=== PATIENT | male | born 1945 | race Caucasian/White ===

== ENCOUNTER 2022-05-05 12:17 | Inpatient (IN) | payer OTHER ==
[2022-05-05 13:05] VITALS: BMI 28.3
[2022-05-05] MEDS ORDERED: PREGABALIN 100 MG CAPSULE PO ONE ×2 (14:41→19:11)
[2022-05-05] MEDS ORDERED: PREGABALIN 100 MG CAPSULE ONE ×2 (14:50→19:44)
[2022-05-05 15:13] LABS: HEMATOCRIT 44.2 % (35.4-49); HEMOGLOBIN 13.6 GM/dL (11.7-16.9); MCH 25.2 pg (25.7-33.7); MCHC 30.9 g/dl (32.0-35.9); MEAN CELL VOLUME 81.6 fl (80-96); MEAN PLT VOLUME 8.5 fl (7.5-11.1); PLATELET COUNT 290 10^3/uL (134-434); RBC 5.42 M/mm3 (4.00-5.60); RDW 25.1 % (11.9-15.9); WHITE BLOOD COUNT 17.7 K/mm3 (4.0-10.0)
[2022-05-05 15:22] LABS: INR 1.21 (0.83-1.09); PROTHROMBIN TIME (PATIENT) 13.9 SEC (9.7-13.0)
[2022-05-05 15:25] LABS: ACTIVATED PTT 34.7 SECONDS (25.2-36.5)
[2022-05-05 15:37] LABS: CALCIUM 8.9 mg/dL (8.5-10.1)
[2022-05-05 15:38] LABS: ALBUMIN 3.5 g/dl (3.4-5.0); BLOOD UREA NITROGEN 27.4 mg/dL (7-18); MAGNESIUM 2.3 mg/dL (1.8-2.4)
[2022-05-05 15:41] LABS: CREATININE 1.1 mg/dL (0.55-1.3)
[2022-05-05 15:42] LABS: BILIRUBIN,TOTAL 0.7 mg/dL (0.2-1); TOT PROT 7.3 g/dl (6.4-8.2)
[2022-05-05 15:43] LABS: ANISOCYTOSIS 2+; MACROCYTOSIS 0
[2022-05-05] MEDS ORDERED: VANCOMYCIN 1 GM in D5W (PRE-DOCKED) 1,000 MG/250 ML IVPB ONE (16:22)
[2022-05-05] MEDS ORDERED: MEROPENEM 1 GM in DEXTROSE 5%-WATER 100 ML IVPB ONE (16:22)
[2022-05-05] MEDS ORDERED: VANCOMYCIN/WATER FOR INJ (PEG) 1,000 MG/200 ML BAG IVPB ONE (17:05)
[2022-05-05] MEDS ORDERED: MEROPENEM 1 GM VIAL (RESTRICTED TO ID) IVPB ONE (17:05)
[2022-05-05] MEDS ORDERED: SENNOSIDES 8.6MG TABLET (FP) PO ONE ×2 (19:12→19:44)
[2022-05-05] MEDS ORDERED: MELATONIN 5 MG TABLETS PO ONE (19:12)
[2022-05-05] MEDS ORDERED: ASPIRIN COATED 81 MG TABLET.EC PO ONE (19:18)
[2022-05-05] MEDS ORDERED: MELATONIN 5 MG TABLETS ONE (19:44)
[2022-05-05] MEDS ORDERED: ASPIRIN COATED 81 MG TABLET.EC ONE (19:44)
[2022-05-06] MEDS ORDERED: SODIUM CHLORIDE 1,000 ML IV SCH (06:15)
[2022-05-06] MEDS: PIPERACILLIN/TAZOB 3.375 GM 3.375 GM in DEXTROSE 5%-WATER - 50 ML IVPB SCH ×3 (09:41→22:58)
[2022-05-06] MEDS: ENOXAPARIN NA (PORCINE) 40 MG/0.4 ML DISP.SYRIN SQ SCH (09:44)
[2022-05-06] MEDS ORDERED: PIPERACILLIN/TAZOB 3.375 GM 3.375 GM in DEXTROSE 5%-WATER - 50 ML IVPB SCH (10:00)
[2022-05-06] MEDS ORDERED: VANCOMYCIN 1 GM in D5W (PRE-DOCKED) 1,000 MG/250 ML IVPB SCH (10:00)
[2022-05-06] MEDS ORDERED: CLINDAMYCIN 600MG PREMIX IVPB 600 MG/50 ML BAG IVPB SCH (10:00)
[2022-05-06] MEDS ORDERED: VANCOMYCIN 1 GM/200 ML PREMIX BAG (RESTRICTED TO ID ONLY) IVPB SCH (11:00)
[2022-05-06] MEDS: HYDROXYUREA 500 MG CAPSULE PO SCH (14:19)
[2022-05-06] MEDS: metoPROLOL SUCCINATE 25 MG TAB.SR.24H (FP) PO SCH (14:20)
[2022-05-06] MEDS: PREGABALIN 100 MG CAPSULE PO SCH ×2 (14:20→22:58)
[2022-05-06] MEDS: PANTOPRAZOLE 40 MG TABLET PO SCH (14:20)
[2022-05-06] MEDS ORDERED: oxyCODONE HCL 5 MG TABLET PO PRN ×3 (14:37→15:50)
[2022-05-06] MEDS ORDERED: morphine SO4 SUSTAINED ACTING 15 MG TABLET.SA PO ONE ×2 (15:29→15:32)
[2022-05-06] MEDS ORDERED: ASPIRIN COATED 81 MG TABLET.EC PO ONE (19:18)
[2022-05-06] MEDS ORDERED: SENNOSIDES 8.6MG TABLET (FP) PO SCH (22:00)
[2022-05-06] MEDS ORDERED: ATORVASTATIN CA 40 MG TABLET (FP) PO SCH (22:00)
[2022-05-07 00:21] VITALS: RESP 18
[2022-05-07] MEDS: PIPERACILLIN/TAZOB 3.375 GM 3.375 GM in DEXTROSE 5%-WATER - 50 ML IVPB SCH (04:01)
[2022-05-07] MEDS: PREGABALIN 100 MG CAPSULE PO SCH ×2 (05:59→13:46)
[2022-05-07 07:37] VITALS: BP 106/66; PULSE 60; TEMP 97.4
[2022-05-07] MEDS ORDERED: MULTIVITAMINS (DAILY MVI) TABLET (FP) PO SCH (10:00)
[2022-05-07] MEDS ORDERED: morphine SO4 SUSTAINED ACTING 15 MG TABLET.SA PO SCH (10:00)
[2022-05-07] MEDS ORDERED: LACTOBACILLUS ACIDOPHILUS 1 TABLET PO SCH (10:00)
[2022-05-07] MEDS ORDERED: ASCORBIC ACID 500 MG TABLET (FP) PO SCH (10:00)
[2022-05-07] MEDS ORDERED: ASPIRIN 81 MG CHEWABLE TABLETS PO SCH (10:00)
[2022-05-07] MEDS: metoPROLOL SUCCINATE 25 MG TAB.SR.24H (FP) PO SCH (11:23)
[2022-05-07] MEDS: PANTOPRAZOLE 40 MG TABLET PO SCH (11:23)
[2022-05-07] MEDS: ENOXAPARIN NA (PORCINE) 40 MG/0.4 ML DISP.SYRIN SQ SCH (11:24)
[2022-05-07] MEDS: HYDROXYUREA 500 MG CAPSULE PO SCH (11:24)
[2022-05-07] MEDS ORDERED: PIPERACILLIN/TAZOB 3.375 GM 3.375 GM in DEXTROSE 5%-WATER - 50 ML IVPB SCH ×2 (12:00→18:00)
[2022-05-07] MEDS ORDERED: FUROSEMIDE 20 MG TABLET (FP) PO SCH (13:45)
[2022-05-07] MEDS ORDERED: valACYclovir HCL 500 MG TABLET (FP) PO SCH (14:00)
[2022-05-08] MEDS ORDERED: PIPERACILLIN/TAZOB 3.375 GM 3.375 GM in DEXTROSE 5%-WATER - 50 ML IVPB SCH (12:00)
== END 2022-05-07 14:27 | DRG 603 ==
LOC: JER 12:17 → JERBED 16:21 → J8W 21:58
PROVIDERS: ADMIT Internal Medicine; ATTEND Nurse Practitioner Acute Care
DX: L03.116 Cellulitis of left lower limb (principal); L03.115 Cellulitis of right lower limb; G89.29 Other chronic pain; E78.5 Hyperlipidemia, unspecified; I10 Essential (primary) hypertension; I87.2 Venous insufficiency (chronic) (peripheral); B02.9 Zoster without complications; K21.9 Gastro-esophageal reflux disease without esophagitis; M54.9 Dorsalgia, unspecified
CPT/HCPCS: 0241U-QW; 36415; 71045-TC-FY; 73590-TC-LT-FY; 73590-TC-RT-FY; 73630-TC-LT; 73630-TC-RT-FY; 80053; 83735; 85025; 85610; 85730; 86850; 86900; 86901; 87040; 93005; 93010; 93970-TC; 97116-GP; 97161-GP; 99285-25; G0463-25; J8999